=== PATIENT | male | born 1940 | race Caucasian/White ===

== ENCOUNTER 2016-05-07 14:08 | Inpatient (IN) | payer OTHER ==
[~2016-05-07] VITALS: Ht 170.2 cm; Wt 78.8 kg
[2016-05-07 14:15] VITALS: BP 135/63; PULSE 127; RESP 20; TEMP 97.5; O2SAT 98
--- NOTE | 2016-05-07 15:12 | PD ---
HPI Chief Complaint: Syncope/Near-Syncope Time Seen by Provider: 14:53 Travel History International Travel<30 days: No Contact w/Intl Traveler<30days: No Traveled to known affect area: No History of Present Illness HPI This patient was out in the yard and became dizzy and lightheaded. He felt like he is given a pass out. His neighbor helped him into a chair and reports that he did lose consciousness and slumped back in the chair. He woke spontaneously. He did not have any chest pain. 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 He denies any history of cardiac disease. He presents in A. fib with RVR with rate of 140 but variable. Symptoms are moderately severe. No alleviating factors. Duration 30 minutes PFSH Past Medical History High Cholesterol: Yes Past Surgical History Surgical History: No Previous Surgery Social History Alcohol Use: Yes (2-3 DRINKS DAILY) Tobacco Use: No Substance Use: No Allergies-Medications (Allergen,Severity, Reaction): Coded Allergies: No Known Allergies (Unverified , 05/07/16) Review of Systems General / Constitutional: No: Fever Eyes: No: Visual changes HENT: Positive: Lightheadedness, No: Headaches Cardiovascular: Positive: Irregular Rhythm, Tachycardia, Syncope, No: Chest Pain or Discomfort Respiratory: No: Shortness of Breath Gastrointestinal: No: Abdominal Pain Genitourinary: No: Dysuria Musculoskeletal: No: Pain Skin: No Rash Neurologic: Positive: Weakness, Dizziness, Syncope Psychiatric: No: Depression Endocrine: No: Polydipsia Hematologic/Lymphatic: No: Easy Bruising Physical Exam Narrative GENERAL: Well-nourished, well-developed patient in no apparent distress. SKIN: Warm and dry. HEAD: Atraumatic. Normocephalic. EYES: Pupils equal and round. No scleral icterus. No injection or drainage. ENT: No nasal bleeding or discharge. Mucous membranes pink and moist. NECK: Trachea midline. No JVD. CARDIOVASCULAR: Irregularly irregular rhythm. No murmur appreciated. Rate between 120 -140 RESPIRATORY: No accessory muscle use. Clear to auscultation. Breath sounds equal bilaterally. GASTROINTESTINAL: Abdomen soft, non-tender, nondistended. Hepatic and splenic margins not palpable. MUSCULOSKELETAL: No obvious deformities. No clubbing. No cyanosis. No edema. NEUROLOGICAL: Awake and alert. No obvious cranial nerve deficits. Motor grossly within normal limits. Normal speech. PSYCHIATRIC: Appropriate mood and affect; insight and judgment normal. Data Data Last Documented VS Vital Signs Date Time Temp Pulse Resp B/P Pulse Ox O2 Delivery O2 Flow Rate FiO2 05/07/16 14:18 127 18 98 Room Air 05/07/16 14:15 97.5 135/63 Orders Diltiazem Inj (Cardizem Inj) (05/07/16 15:15) Iv Access Insert/Monitor (05/07/16 15:01) Complete Blood Count With Diff (05/07/16 15:01) Basic Metabolic Panel (Bmp) (05/07/16 15:01) Admissions Director / Telemetry RINA.Q8H (05/07/16 15:01) Prothrombin Time / Inr (Pt) (05/07/16 15:01) Act Partial Throm Time (Ptt) (05/07/16 15:01) Troponin I (05/07/16 15:01) Ckmb (Isoenzyme) Profile (05/07/16 15:01) Admit Order (Ed Use Only) (05/07/16 16:42) Labs Laboratory Tests Test 05/07/16 15:10 White Blood Count 6.8 TH/MM3 Red Blood Count 4.56 MIL/MM3 Hemoglobin 14.7 GM/DL Hematocrit 42.0 % Mean Corpuscular Volume 92.2 FL Mean Corpuscular Hemoglobin 32.2 PG Mean Corpuscular Hemoglobin 34.9 % Concent Red Cell Distribution Width 13.2 % Platelet Count 179 TH/MM3 Mean Platelet Volume 9.5 FL Neutrophils (%) (Auto) 73.3 % Lymphocytes (%) (Auto) 16.8 % Monocytes (%) (Auto) 8.4 % Eosinophils (%) (Auto) 1.0 % Basophils (%) (Auto) 0.5 % Neutrophils # (Auto) 5.0 TH/MM3 Lymphocytes # (Auto) 1.1 TH/MM3 Monocytes # (Auto) 0.6 TH/MM3 Eosinophils # (Auto) 0.1 TH/MM3 Basophils # (Auto) 0.0 TH/MM3 CBC Comment DIFF FINAL Differential Comment Prothrombin Time 10.7 SEC Prothromb Time International 1.0 RATIO Ratio Activated Partial 19.8 SEC Thromboplast Time Sodium Level 140 MEQ/L Potassium Level 3.9 MEQ/L Chloride Level 105 MEQ/L Carbon Dioxide Level 25.9 MEQ/L Anion Gap 9 MEQ/L Blood Urea Nitrogen 14 MG/DL Creatinine 0.86 MG/DL Estimat Glomerular Filtration 86 ML/MIN Rate Random Glucose 107 MG/DL Calcium Level 8.7 MG/DL Total Creatine Kinase 70 U/L Troponin I LESS THAN 0.02 NG/ML MDM Medical Decision Making Medical Screen Exam Complete: Yes Emergency Medical Condition: Yes Medical Record Reviewed: Yes Differential Diagnosis A. fib with RVR, SVT, ventricular tachycardia Narrative Course I have reviewed the patient's electronic medical record. Patient is from [place]. He is never been to the ER before IV placed CBC is normal Metabolic profile is normal CK is negative Troponin is negative Coagulation studies are normal I reviewed his EKG which shows atrial fibrillation but no ST elevation Extended cardiac monitoring confirms A. fib with RVR I gave him 15 mg IV Cardizem to achieve rate control Patient achieved good rate control with this. He is still in A. fib in the 70s Given his new onset arrhythmia coupled with syncope and no medical follow-up, He will be admitted for further evaluation. Call placed to the medical residents to discuss Diagnosis Primary Impression: Atrial fibrillation with RVR Additional Impression: Syncope Qualified Code: R55 - Syncope, unspecified syncope type Jorge Hoyos MD May 07, 2016 15:12
[2016-05-07] MEDS ORDERED: DILTIAZEM HCL 25 MG/5 ML VIAL IV ONE (15:15)
[2016-05-07 16:03] LABS: BASOPHIL % 0.5 % (0.0-2.0); EOSINOPHIL # 0.1 TH/MM3 (0-0.4); HEMO FLAGS DIFF FINAL; LYMPH % 16.8 % (9.0-44.0); LYMPHOCYTE # 1.1 TH/MM3 (1.0-4.8); MEAN CELL VOLUME 92.2 FL (80.0-100.0); MEAN CORPUSCULAR HEMOGLOBIN 32.2 PG (27.0-34.0); MEAN CORPUSCULAR HGB CONC 34.9 % (32.0-36.0); MONO % 8.4 % (0.0-8.0); NEUT % 73.3 % (16.0-70.0); PLATELET COUNT 179 TH/MM3 (150-450); RED BLOOD COUNT 4.56 MIL/MM3 (4.50-5.90); RED CELL DISTRIBUTION WIDTH 13.2 % (11.6-17.2); WHITE BLOOD COUNT 6.8 TH/MM3 (4.0-11.0)
[2016-05-07 16:29] LABS: ANION GAP 9 MEQ/L (5-15); BICARBONATE 25.9 MEQ/L (21.0-32.0); BLOOD UREA NITROGEN 14 MG/DL (7-18); CHLORIDE 105 MEQ/L (98-107); GLOMERULAR FILTRATION RATE 86 ML/MIN (>89); POTASSIUM 3.9 MEQ/L (3.5-5.1); SODIUM (NA) 140 MEQ/L (136-145)
[2016-05-07 16:30] LABS: APTT (PATIENT) 19.8 SEC (24.3-30.1); CREATINE KINASE 70 U/L (39-308); PROTHROMBIN TIME - PATIENT 10.7 SEC (9.8-11.6)
--- NOTE | 2016-05-07 17:01 | HHI.HP ---
[facility] Service Family Medicine Primary Care Physician Non-Staff Admission Diagnosis new onset Afib with RVR, syncope Diagnoses: International Travel<30 Days: No Contact w/Intl Traveler<30days: No Known Affected Area: No History of Present Illness 76M with a history significant for hyperlipidemia who presented to the ED after syncopal episode. He was helping a neighbor with yardwork, but began to feel very hot and sat down prior to passing out. The neighbor states he was unconscious for 20 seconds without any seizure activity, tongue biting, loss of bowel or bladder function. The patient endorses lightheadedness and palpitations prior to episode but denies any weakness. No blackout sensation. [place] better after waking up, but EMS was called due to patient's syncope. This is the first time this has happened. No cardiac history, no history of stroke, no history of seizures.No chest pain or shortness of breath during or before the episode. Possibly dehydrated given no water consumed today. No fall, no head injury. [place] weak after the fall but was "back to normal" once he got to ED by [facility]. No recent illness or sick contacts. Does endorse daily use of alcohol. The patient is from [place] - plans to go back to [place] at the end of next week. Has been here four months. (Joan Mascorro MD R1) Review of Systems Constitutional: DENIES: Fever, Chills Eyes: DENIES: Blurred vision, Diplopia Ears, nose, mouth, throat: DENIES: Tinnitus, Hearing loss, Throat pain Respiratory: DENIES: Cough, Wheezing Cardiovascular: DENIES: Chest pain, Palpitations Gastrointestinal: DENIES: Abdominal pain, Bloody stools, Constipation, Diarrhea , Nausea, Vomiting, Difficulty Swallowing Genitourinary: DENIES: Urinary frequency, Urinary incontinence, Urgency, Dysuria Integumentary: DENIES: Rash Hematologic/lymphatic: DENIES: Bruising Neurologic: DENIES: Abnormal gait, Headache, Localized weakness, Seizures, Tremor (Joan Mascorro MD R1) Past Family Social History Past Medical History Hyperlipidemia Past Surgical History None Reported Medications Crestor 5mg daily (Joan Mascorro MD R1) Allergies: Coded Allergies: No Known Allergies (Unverified , 05/07/16) Family History Denies family history of cardiac disease, diabetes, cva, cancer Social History Cigarettes: former, 25 years ago Alcohol: 3-4 beers daily, last use last night Illicit: none From [place], lives in [place] Jan - May (Joan Mascorro MD R1) Physical Exam Vital Signs Vital Signs Date Time Temp Pulse Resp B/P Pulse Ox O2 Delivery O2 Flow Rate FiO2 05/07/16 14:18 127 18 98 Room Air 05/07/16 14:15 97.5 127 20 135/63 98 Physical Exam GENERAL: This is a well-nourished, well-developed male, in no apparent distress. SKIN: No rashes, ecchymoses or lesions. Cool and dry. HEAD: Atraumatic. Normocephalic. No temporal or scalp tenderness. EYES: Pupils equal round and reactive. Extraocular motions intact. No scleral icterus. No injection or drainage. ENT: Nose without bleeding, purulent drainage or septal hematoma. Throat without erythema, tonsillar hypertrophy or exudate. Uvula midline. Airway patent. NECK: Trachea midline. No JVD or lymphadenopathy. Supple, nontender, no meningeal signs. CARDIOVASCULAR: Irregularly irregular rhythm. Heart rate is approximately 75 on telemetry. Radial and DP pulses 2+ and symmetric bilaterally. Brisk capillary refill. RESPIRATORY: Clear to auscultation. Breath sounds equal bilaterally. No wheezes , rales, or rhonchi. GASTROINTESTINAL: Abdomen soft, non-tender, nondistended. No hepato-splenomegaly , or palpable masses. No guarding. MUSCULOSKELETAL: Extremities without clubbing, cyanosis, or edema. No joint tenderness, effusion, or edema noted. No calf tenderness. Negative Homans sign bilaterally. NEUROLOGICAL: Awake and alert. Cranial nerves grossly intact. Nonfocal exam.. Motor and sensory grossly within normal limits. Normal speech. Laboratory Laboratory Tests Test 05/07/16 15:10 White Blood Count 6.8 Red Blood Count 4.56 Hemoglobin 14.7 Hematocrit 42.0 Mean Corpuscular Volume 92.2 Mean Corpuscular Hemoglobin 32.2 Mean Corpuscular Hemoglobin 34.9 Concent Red Cell Distribution Width 13.2 Platelet Count 179 Mean Platelet Volume 9.5 Neutrophils (%) (Auto) 73.3 Lymphocytes (%) (Auto) 16.8 Monocytes (%) (Auto) 8.4 Eosinophils (%) (Auto) 1.0 Basophils (%) (Auto) 0.5 Neutrophils # (Auto) 5.0 Lymphocytes # (Auto) 1.1 Monocytes # (Auto) 0.6 Eosinophils # (Auto) 0.1 Basophils # (Auto) 0.0 CBC Comment DIFF FINAL Differential Comment Prothrombin Time 10.7 Prothromb Time International 1.0 Ratio Activated Partial 19.8 Thromboplast Time Sodium Level 140 Potassium Level 3.9 Chloride Level 105 Carbon Dioxide Level 25.9 Anion Gap 9 Blood Urea Nitrogen 14 Creatinine 0.86 Estimat Glomerular Filtration 86 Rate Random Glucose 107 Calcium Level 8.7 Total Creatine Kinase 70 Troponin I LESS THAN 0.02 (Joan Mascorro MD R1) Result Diagram: 05/07/16 1510 05/07/16 1510 Assessment and Plan Attending Attestation THIS CASE WAS DISCUSSED WITH THE RESIDENT PHYSICIANS. I HAVE REVIEWED THE RECORD AND AGREE WITH THE ABOVE NOTE AND PLAN OF CARE WAS DISCUSSED. I HAVE AUTHORIZED THE ORDER FOR ADMISSION TO AN IN-PATIENT STATUS. (Taj Phelps MD) Problem List: (1) Atrial fibrillation with RVR Status: Acute Plan: New-onset. Patient is currently symptomatic, however, he experienced syncopal episode this morning which may be related to structural cardiac abnormality. He denies history of CHF, hypertension, stroke. Major risk factors include age and alcohol use. EKG on admission showing atrial fibrillation with RVR, rate 133. He received one dose of IV Cardizem at 15 mg. Cardiology consult placed Chadsvasc2 score is 2, making him high thrombotic risk ASA 324mg chew given x 1 in ED Trend cardiac enzymes Metoprolol 25 mg by mouth initiated On exam, A. fib is rate controlled at approximately 75, and patient is asymptomatic. We'll continue to monitor on telemetry. Obtain echocardiogram (2) Syncope Status: Acute Plan: Syncopal episode likely related to atrial fibrillation and transiently reduced blood flow to periphery. Nonfocal exam. Will obtain echo as above. Workup cardiac causes of syncope is most likely etiology. Neuro checks every 4 hours (3) Alcohol abuse Status: Acute Plan: Drinks 4 beers nightly, last use 05/06. CIWA protocol. Rally pack (4) Fluids/Electrolytes/Nutrition/Prophylaxis Status: Acute Plan: Fluids: PO hydration Electrolytes: monitor and replete as needed Nutrition: heart-healthy diet DVT Prophylaxis:Lovenox 40mg subQ q24hr GI Prophylaxis: not indicated (Joan Mascorro MD R1) Problem Qualifiers (1) Syncope: Qualified Code: R55 - Syncope, unspecified syncope type Joan Mascorro MD R1 May 07, 2016 17:00 Taj Phelps MD May 08, 2016 11:51
[2016-05-07 17:28] VITALS: BP 151/74; PULSE 86; RESP 18; O2SAT 99
[2016-05-07 17:39] VITALS: O2SAT 98
[2016-05-07] MEDS ORDERED: ACETAMINOPHEN 325 MG TAB PO PRN (17:45)
[2016-05-07] MEDS ORDERED: ONDANSETRON HCL 4 MG/2 ML VIAL IVP PRN (17:45)
[2016-05-07] MEDS ORDERED: LORazepam 2 MG TAB PO PRN (17:45)
[2016-05-07] MEDS ORDERED: LORazepam 2 MG/ML VIAL IV PUSH PRN ×4 (17:45)
[2016-05-07] MEDS ORDERED: SODIUM CHLORIDE 0.9% FLUSH 10 ML FLUSH IV FLUSH PRN (17:45)
[2016-05-07] MEDS ORDERED: FLUMAZENIL 0.5 MG/5 ML VIAL IV PUSH PRN (17:45)
[2016-05-07] MEDS ORDERED: LORazepam 1 MG TAB PO PRN (17:45)
[2016-05-07] MEDS ORDERED: ASPIRIN 81 MG CHEW TAB CHEW ONE (18:00)
[2016-05-07] MEDS ORDERED: ENOXAPARIN SODIUM 40 MG/0.4 ML SYRINGE SQ SCH (18:00)
[2016-05-07] MEDS: THIAMINE INJ 100 MG in SODIUM CHLORIDE 0.9% INJ 100 ML IV SCH (19:01)
[2016-05-07 19:39] LABS: ALKALINE PHOSPHATASE 78 U/L (45-117); ALT (GPT) 59 U/L (12-78); AST (GOT) 51 U/L (15-37); INDIRECT BILIRUBIN 0.9 MG/DL (0.0-0.8); TOTAL BILIRUBIN ADULT 1.1 MG/DL (0.2-1.0)
[2016-05-07 20:00] VITALS: BP 139/99; PULSE 115; RESP 18; TEMP 97.6; O2SAT 98
[2016-05-07] MEDS: MULTIVITAMIN INJ 10 ML, FOLIC ACID INJ 1 MG in SODIUM CHLORID 0.9% 500 ML INJ 500 ML IV SCH (20:37)
[2016-05-07] MEDS: SODIUM CHLORIDE 0.9% FLUSH 10 ML FLUSH IV FLUSH SCH (21:00)
[2016-05-07] MEDS: METOPROLOL TARTRATE 25 MG TAB PO SCH (21:53)
[2016-05-07 22:26] LABS: CREATINE KINASE 56 U/L (39-308)
[2016-05-07 23:00] VITALS: PULSE 89
[2016-05-08] VITALS (8 sets, daily range): BP systolic 121–142; BP diastolic 63–84; PULSE 74–131; RESP 16–20; TEMP 97.1–98.1; O2SAT 95–98
[2016-05-08 03:19] LABS: AUTOMATED NEUTROPHIL # 4.2 TH/MM3 (1.8-7.7); BASOPHIL % 0.6 % (0.0-2.0); EOSINOPHIL # 0.1 TH/MM3 (0-0.4); HEMATOCRIT 38.9 % (39.0-51.0); HEMO FLAGS DIFF FINAL; LYMPH % 28.1 % (9.0-44.0); LYMPHOCYTE # 1.9 TH/MM3 (1.0-4.8); MEAN CELL VOLUME 91.4 FL (80.0-100.0); MEAN CORPUSCULAR HEMOGLOBIN 32.5 PG (27.0-34.0); MEAN CORPUSCULAR HGB CONC 35.6 % (32.0-36.0); MONO % 8.5 % (0.0-8.0); NEUT % 61.8 % (16.0-70.0); PLATELET COUNT 180 TH/MM3 (150-450); RED BLOOD COUNT 4.25 MIL/MM3 (4.50-5.90); RED CELL DISTRIBUTION WIDTH 13.2 % (11.6-17.2); WHITE BLOOD COUNT 6.8 TH/MM3 (4.0-11.0)
[2016-05-08 03:35] LABS: BICARBONATE 28.1 MEQ/L (21.0-32.0); POTASSIUM 3.7 MEQ/L (3.5-5.1)
[2016-05-08 03:49] LABS: CREATINE KINASE 55 U/L (39-308)
[2016-05-08] MEDS: SODIUM CHLORIDE 0.9% FLUSH 10 ML FLUSH IV FLUSH SCH ×2 (09:00→21:00)
[2016-05-08] MEDS: METOPROLOL TARTRATE 25 MG TAB PO SCH ×2 (09:15→21:00)
--- NOTE | 2016-05-08 09:40 | EKG ---
Date Performed: 05/07/2016 Time Performed: 22:48:18 PTAGE: 76 years EKG: ATRIAL FIBRILLATION MODERATE INTRAVENTRICULAR CONDUCTION DELAY NONSPECIFIC ST & T-WAVE ABNO RMALITY ABNORMAL RHYTHM ECG PREVIOUS TRACING : 05/07/2016 14.26 DOCTOR: Dar Franco Interpretating Date/Time 05/08/2016 09:40:07
[2016-05-08] MEDS ORDERED: XARE15TA PO (09:57)
--- NOTE | 2016-05-08 10:48 | MB ---
cc: GARCÍA RHODES DATE OF CONSULTATION: 05/08/2016 DATE OF : 1940 REASON FOR CONSULTATION Atrial fibrillation with RVR. HISTORY OF PRESENT ILLNESS 76-year-old male with past medical history significant for hyperlipidemia, that presents to the emergency department after syncopal episode. He reports he was working in yard work yesterday when he began feeling very hot, he sat down and then apparently he passed out for about 20 seconds. He reports before passing out he did have palpitations and lightheadedness, however denies chest pain, shortness of breath. EMS was called and he was brought into the emergency department. In the emergency department he was found to be in atrial fibrillation with RVR. The patient was admitted for further management and evaluation. The patient is from [place] and has been here in this state since January. He denies any fevers, chills, nausea, vomiting, diarrhea or recent travels. REVIEW OF SYSTEMS Negative except for what is mentioned in the HPI. PAST MEDICAL HISTORY Hyperlipidemia. PAST SURGICAL HISTORY None. MEDICATION Home medications: Crestor. ALLERGIES NO KNOWN DRUG ALLERGIES. FAMILY HISTORY Unremarkable. SOCIAL HISTORY He is a former smoker. He drinks alcohol socially, 3-4 beers daily. He denies illicit drug use. PHYSICAL EXAMINATION VITAL SIGNS: Temperature 97.2, respiratory rate 16, pulse 76, blood pressure 121 /63, O2 sat 95% on room air. Telemetry shows atrial fibrillation with ventricular response in about the high 90s, lower 100s at rest. GENERAL: He is awake, alert, oriented x3, in no acute distress. NECK: No JVD, no carotid bruits. HEART: Irregularly, irregular, no murmurs, rubs or gallops. LUNGS: Clear to auscultation bilaterally. ABDOMEN: Soft, nontender, nondistended. Positive bowel sounds. EXTREMITIES: No cyanosis or edema. DATA CBC hemoglobin 13, hematocrit 38, platelet count 180, INR 1. Chemistries sodium 141, potassium 3.7, BUN 13, creatinine 0.7, troponin less than 0.02 x2. EKG EKG on admission shows atrial fibrillation with RVR. ASSESSMENT/PLAN 76-year-old male who presented with syncope in the setting of atrial fibrillation with RVR versus dehydration. He currently remains afebrile and hemodynamically stable, rate has been controlled with IV medication. He has been now started on p.o. metoprolol. His CHADS vasc score is 2, making him high stroke risk. Thus, oral anticoagulation is highly recommended to be started. If his rate is controlled with medications, his echocardiogram is unremarkable and he is tolerating oral anticoagulation, I think he might be able to be discharged home with a 24-hour Holter monitor and scheduled to see me in the office. I understand that the patient is from [place] and he states that he would like to go to [place] as soon as possible. RECOMMENDATIONS 1. Continue rate control with metoprolol 25 mg p.o. b.i.d. and optimize as tolerated by blood pressure and heart rate 2. Start oral anticoagulation either with a new anticoagulants or Coumadin. 2. Get 2-D echocardiogram to assess LV systolic function or any valvulopathies. Thank you for the opportunity to take part in the care of this patient, further therapy to be determined. MD JEANA Gardiner/CINTHIA /10:02 AM /10:24 AM IGNACIA
--- NOTE | 2016-05-08 11:05 | EKG ---
Date Performed: 05/07/2016 Time Performed: 14:26:41 PTAGE: 76 years EKG: ATRIAL FIBRILLATION WITH RAPID VENTRICULAR RESPONSE MODERATE INTRAVENTRICULAR CONDUCTION DE LAY MINIMAL ST DEPRESSION ABNORMAL RHYTHM ECG INTERPRETATION BASED ON A DEFAULT AGE OF 38 YEARS NO PREVIOUS TRACING DOCTOR: Dar Franco Interpretating Date/Time 05/08/2016 11:04:45
--- NOTE | 2016-05-08 11:50 | HHI.FPPN ---
Subjective Remarks No acute events overnight and patient feels relatively well this morning. He has been out of bed to use the restroom and denies any significant shortness of breath or lightheadedness/dizziness. He continues to feel intermittent palpitations and review of his telemetry shows that he has continued in atrial fibrillation with occasional tachycardia. Her only his heart rate is in the 70s to 80s but continues to be irregular. At this time he denies chest pain, denies shortness of breath, denies nausea/vomiting, denies fevers or chills. In summary this is a 76-year-old male who was previously healthy with a past medical history significant only for hyperlipidemia who had a syncopal episode on the day of presentation. He was helping a neighbor do yard work when he felt himself becoming very hot/flushed associated with some palpitations. He was able to sit down prior to passing out, his syncopal episode apparently lasted approximately 20 seconds with no seizure type activity. He has never had a syncopal episode prior to this. Past Medical History Hyperlipidemia Past Surgical History None Reported Medications Crestor 5mg daily Family History Denies family history of cardiac disease, diabetes, cva, cancer Social History Cigarettes: former, 25 years ago Alcohol: 3-4 beers daily, last use last night Illicit: none From [place], lives in [place] Jan - May Objective Vitals Vital Signs Date Time Temp Pulse Resp B/P Pulse Ox O2 Delivery O2 Flow Rate FiO2 05/08/16 04:00 97.2 76 16 121/63 95 05/08/16 00:00 98.1 90 16 136/75 96 05/07/16 23:00 89 05/07/16 20:00 97.6 115 18 139/99 98 05/07/16 17:39 98 21 05/07/16 17:28 86 18 151/74 99 05/07/16 14:18 127 18 98 Room Air 05/07/16 14:15 97.5 127 20 135/63 98 I/O 05/07/16 05/07/16 05/07/16 05/08/16 05/08/16 05/08/16 07:00 15:00 23:00 07:00 15:00 23:00 Intake Total 840 ml 480 ml Balance 840 ml 480 ml Intake Oral 240 ml 480 ml IV Total 600 ml 0 ml Result Diagram: 05/08/1625605/08/16256 Objective Remarks GENERAL: This is a well-nourished, well-developed male, in no apparent distress. SKIN: No rashes, ecchymoses or lesions. Cool and dry. NECK: Trachea midline. No JVD or lymphadenopathy. Supple, nontender, no meningeal signs. CARDIOVASCULAR: Irregularly irregular rhythm. Radial and DP pulses 2+ and symmetric bilaterally. Brisk capillary refill. RESPIRATORY: Clear to auscultation. Breath sounds equal bilaterally. No wheezes , rales, or rhonchi. GASTROINTESTINAL: Abdomen soft, non-tender, nondistended. MUSCULOSKELETAL: Extremities without clubbing, cyanosis, or edema. NEUROLOGICAL: Awake and alert. Cranial nerves grossly intact. Nonfocal exam. Normal speech. A/P Assessment and Plan 76-year-old male presenting with syncopal episode and found to be in new onset atrial fibrillation with RVR Problem List: (1) Atrial fibrillation with RVR Status: Acute Plan: This appears to be new onset atrial fibrillation Cardiac troponin cycled 3 which are negative TSH within normal limits at 2.140 Rate control with metoprolol 25 mg by mouth twice a day - Titrate this up as needed for blood pressure control and heart rate CHADS-VASC2 score of 2 which puts him at high risk for thromboembolic event - Started on Xarelto 15 mg by mouth twice a day, will transition to 20 mg daily after 21 days Cardiology consulted and appreciate recommendations 2-D echocardiogram ordered and pending Of note patient is from [place] and would like to return to [place] for definitive treatment if possible (2) Syncope Status: Acute Plan: Secondary to atrial fibrillation with RVR - Treatment plan as above (3) Hyperlipidemia Status: Acute Plan: Continue home Crestor 5 mg daily (4) Alcohol abuse Status: Acute Plan: Drinks 4 beers nightly, last use 05/06. CIWA protocol. Rally pack (5) Fluids/Electrolytes/Nutrition/Prophylaxis Status: Acute Plan: Fluids: PO hydration Electrolytes: monitor and replete as needed Nutrition: heart-healthy diet DVT Prophylaxis: Anticoagulated with Xarelto GI Prophylaxis: not indicated Problem Qualifiers (1) Syncope: Qualified Code: R55 - Syncope, unspecified syncope type Taj Phelps MD May 08, 2016 11:50
[2016-05-08] MEDS: RIVAROXABAN 15 MG TAB PO SCH ×2 (12:21→21:00)
[2016-05-08] MEDS ORDERED: METO25TA3 PO (15:26)
[2016-05-08] MEDS: MULTIVITAMIN INJ 10 ML, FOLIC ACID INJ 1 MG in SODIUM CHLORID 0.9% 500 ML INJ 500 ML IV SCH (18:00)
[2016-05-08] MEDS: THIAMINE INJ 100 MG in SODIUM CHLORIDE 0.9% INJ 100 ML IV SCH (18:02)
[2016-05-08] MEDS: FOLIC ACID 1 MG TAB PO SCH (18:54)
[2016-05-08] MEDS: MULTIVITAMINS/MINERALS THERAPEUTIC TAB PO SCH (18:54)
--- NOTE | 2016-05-08 21:02 | EC ---
Study Study Date:05/08/2016 STUDY CONCLUSIONS SUMMARY - Left ventricle: The cavity size was normal. Wall thickness was normal. Systolic function was at the lower limits of normal. The estimated ejection fraction was 50%. Wall motion was normal; there were no regional wall motion abnormalities. - Tricuspid valve: Mild regurgitation. If LV function is below 40, please consider prescribing an ACEI or ARB or document rationale for non-use. PROCEDURE DATA STUDY STATUS: Elective. Procedure: Transthoracic echocardiography. Image quality was good. Scanning was performed from the parasternal, apical, and subcostal acoustic windows. Study completion: The patient tolerated the procedure well. Transthoracic echocardiography. M-mode, complete 2D, complete spectral Doppler, and color Doppler. Patient status: Inpatient. CARDIAC ANATOMY LEFT VENTRICLE: The cavity size was normal. Wall thickness was normal. Systolic function was at the lower limits of normal. The estimated ejection fraction was 50%. Wall motion was normal; there were no regional wall motion abnormalities. AORTIC VALVE: Trileaflet; normal thickness leaflets. Doppler: Transvalvular velocity was within the normal range. There was no stenosis. No regurgitation. AORTA: Aortic root: The aortic root was normal in size. MITRAL VALVE: Structurally normal valve. Doppler: Transvalvular velocity was within the normal range. There was no evidence for stenosis. No regurgitation. Peak gradient: 2mm Hg (D). LEFT ATRIUM: The atrium was normal in size. RIGHT VENTRICLE: The cavity size was normal. Wall thickness was normal. PULMONIC VALVE: Doppler: Transvalvular velocity was within the normal range. There was no evidence for stenosis. No regurgitation. TRICUSPID VALVE: Structurally normal valve. Doppler: Transvalvular velocity was within the normal range. Mild regurgitation. PULMONARY ARTERY: The main pulmonary artery was normal-sized. Systolic pressure was within the normal range. RIGHT ATRIUM: The atrium was normal in size. PERICARDIUM: There was no pericardial effusion. SYSTEMIC VEINS: Inferior vena cava: The vessel was normal in size. BASIC MEASUREMENTS ADULT Normal Left ventricle LV internal dimension, ED, chordal level, 49.5 mm 43-52 PLAX LV internal dimension, ES, chordal level, *40.6 mm 23-38 PLAX Fractional shortening, chordal level, PLAX *18 % >29 LV posterior wall thickness, ED 8.01 mm IVS/LVPW ratio, ED 1.2 <1.3 Ventricular septum Septal thickness, ED 9.61 mm Aortic valve Leaflet separation 17 mm 15-26 Left atrium Anterior-posterior dimension 33 mm Right ventricle RV internal dimension, ED, PLAX 22.6 mm 19-38 BASIC MEASUREMENTS ADULT Normal Aortic valve Leaflet separation 17 mm 15-26 Aorta Root diameter, ED 34 mm 20-37 DOPPLER MEASUREMENTS ADULT Normal Mitral valve Peak E-wave velocity 75 cm/s Peak A-wave velocity 46.9 cm/s Peak gradient, D 2 mm Hg Peak E/A ratio 1.6 Tricuspid valve Regurgitant peak velocity 199 cm/s Peak RV-RA gradient, S 16 mm Hg Maximal regurgitant velocity 199 cm/s LEGEND: Mean values are shown as u=mean value. Asterisk (*) cano values outside specified normal range. Prepared and signed by Cecy Chandler [id number]
--- NOTE | 2016-05-08 22:05 | HHI.FPPN ---
Addendum to progress note ADDENDUM Reason for addendum: Additonal documentation Additional information Around 9pm, I received a page from Mr. Chanel's nurse stating that he was refusing to take the second doses of Metoprol and Xarelto. Currently, his heart rate is in the 100's but is intermittently elevated to the 120's and 130s. I stopped by to talk with the patient and explained the risks of not taking these medications. He insisted that his morning nurse told him that the sugar reprocess operator head said he is only supposed to take the medications in the morning. He stated that he is waiting on the sugar reprocess operator head to see him in the morning and confirm how he should take the medications. Apparently, he was told by someone that his ECHO was normal and there was nothing wrong with his heart. According to him, he does not want to "kill himself" by taking extra doses of the medications. I informed him that I am one of the doctors on his team and that we all agreed that he should take Metoprolol and Xarelto twice daily. I also reminded him that Dr. Kaur, the sugar reprocess operator head, saw him this morning and mentioned Metoprolol BID in his note. Despite my attempts to convince him, Mr. Hatfield refused to budge. He knows to call his nurse if he develops any symptoms, who can reach the night team. Estella Howell MD R1 May 08, 2016 22:05
[2016-05-09] MEDS: RIVAROXABAN 15 MG TAB PO SCH (08:18)
[2016-05-09] MEDS: SODIUM CHLORIDE 0.9% FLUSH 10 ML FLUSH IV FLUSH SCH (08:19)
[2016-05-09] MEDS: METOPROLOL TARTRATE 25 MG TAB PO SCH ×2 (08:19→12:53)
[2016-05-09] MEDS: MULTIVITAMINS/MINERALS THERAPEUTIC TAB PO SCH (08:19)
[2016-05-09] MEDS: FOLIC ACID 1 MG TAB PO SCH (08:19)
[2016-05-09] MEDS ORDERED: THIAMINE HCL 100 MG TAB PO SCH (09:00)
--- NOTE | 2016-05-09 11:25 | HHI.DCPOC ---
Discharge Care Plan Diagnosis: (1) Atrial fibrillation with RVR (2) Syncope (3) Hyperlipidemia Goals to Promote Your Health * To prevent worsening of your condition and complications * To maintain your health at the optimal level Directions to Meet Your Goals Take your medications as prescribed Follow your dietary instruction Follow activity as directed Keep your appointments as scheduled Take your immunizations and boosters as scheduled If your symptoms worsen call your PCP, if no PCP go to Urgent Care Center or Emergency Room Smoking is Dangerous to Your Health. Avoid second hand smoke Call the 24-hour hour crisis hotline for domestic abuse at Jimi Walker MD R2 May 09, 2016 11:25
--- NOTE | 2016-05-09 11:55 | HHI.DS ---
Discharge Summary Admission Date May 07, 2016 at 16:44 Admitting Diagnosis new onset Afib with RVR, syncope (1) Atrial fibrillation with RVR Plan: This appears to be new onset atrial fibrillation Cardiac troponin cycled 3 which are negative TSH within normal limits at 2.140 Rec against EtOH use. Rate control with metoprolol 25 mg by mouth twice a day - Titrate this up as needed for blood pressure control and heart rate CHADS-VASC2 score of 2 which puts him at high risk for thromboembolic event - Started on Xarelto 15 mg by mouth twice a day, will transition to 20 mg daily after 21 days Cardiology consulted and appreciate recommendations 2-D echocardiogram ordered and pending Of note patient is from [place] and would like to return to [place] for definitive treatment if possible (2) Syncope Plan: Secondary to atrial fibrillation with RVR - Treatment plan as above (3) Hyperlipidemia Plan: Continue home Crestor 5 mg daily (4) Alcohol abuse Plan: Drinks 4 beers nightly, last use 05/06. CIWA protocol. Rally pack (5) Fluids/Electrolytes/Nutrition/Prophylaxis Plan: Fluids: PO hydration Electrolytes: monitor and replete as needed Nutrition: heart-healthy diet DVT Prophylaxis: Anticoagulated with Xarelto GI Prophylaxis: not indicated Brief History 76M with a history significant for hyperlipidemia who presented to the ED after syncopal episode. He was helping a neighbor with yardwork, but began to feel very hot and sat down prior to passing out. The neighbor states he was unconscious for 20 seconds without any seizure activity, tongue biting, loss of bowel or bladder function. The patient endorses lightheadedness and palpitations prior to episode but denies any weakness. No blackout sensation. [employer] better after waking up, but EMS was called due to patient's syncope. This is the first time this has happened. No cardiac history, no history of stroke, no history of seizures.No chest pain or shortness of breath during or before the episode. Possibly dehydrated given no water consumed today. No fall, no head injury. [employer] weak after the fall but was "back to normal" once he got to ED by [facility]. No recent illness or sick contacts. Does endorse daily use of alcohol. The patient is from [place] - plans to go back to [place] at the end of next week. Has been here four months. CBC/BMP: 05/08/16 0257 05/08/16 0257 Significant Findings Laboratory Tests Test 05/07/16 05/07/16 05/08/16 15:10 21:17 02:57 Neutrophils (%) (Auto) 73.3 % (16.0-70.0) Monocytes (%) (Auto) 8.4 % (0.0-8.0) 8.5 % (0.0-8.0) Activated Partial 19.8 SEC Thromboplast Time (24.3-30.1) Estimat Glomerular Filtration 86 ML/MIN (>89) Rate Random Glucose 107 MG/DL 111 MG/DL (74-106) (74-106) Total Bilirubin 1.1 MG/DL (0.2-1.0) Indirect Bilirubin 0.9 MG/DL (0.0-0.8) Aspartate Amino Transf 51 U/L (15-37) (AST/SGOT) Troponin I LESS THAN 0.02 LESS THAN 0.02 LESS THAN 0.02 NG/ML NG/ML NG/ML (0.02-0.05) (0.02-0.05) (0.02-0.05) Red Blood Count 4.25 MIL/MM3 (4.50-5.90) Hematocrit 38.9 % (39.0-51.0) Calcium Level 8.0 MG/DL (8.5-10.1) PE at Discharge GENERAL: This is a well-nourished, well-developed male, in no apparent distress. SKIN: No rashes, ecchymoses or lesions. Cool and dry. NECK: Trachea midline. No JVD or lymphadenopathy. Supple, nontender, no meningeal signs. CARDIOVASCULAR: Irregularly irregular rhythm. Radial and DP pulses 2+ and symmetric bilaterally. Brisk capillary refill. RESPIRATORY: Clear to auscultation. Breath sounds equal bilaterally. No wheezes , rales, or rhonchi. GASTROINTESTINAL: Abdomen soft, non-tender, nondistended. MUSCULOSKELETAL: Extremities without clubbing, cyanosis, or edema. NEUROLOGICAL: Awake and alert. Cranial nerves grossly intact. Nonfocal exam. Normal speech. Hospital Course Mr. Hatfield is a 76 y/o male who was admitted to [facility] after having a syncopal episode. He was found to be in active A fib on admission with HR > 130 bpm. His rate was controlled with 15 mg Cardizem IV bolus. A cardiac consult was placed and recommended Metoprolol 25 BID and Xarelto 15 mg bid for 3 weeks followed by 20 mg daily. His rate was controlled during his 2 days in the hospital, ECHO showed no clots and an EF of 50% with mild Tricuspid regurgitation. He was leaving for [place] in 5 days, and did not want to stay any longer. He was discharged in stable condition, on a rate control drug and anticoagulation. Pt Condition on Discharge: Fair Discharge Disposition: Discharge Home Discharge Instructions DIET: Follow Instructions for: Heart Healthy Diet Activities you can perform: Regular-No Restrictions Jimi Walker MD R2 May 09, 2016 11:55
--- NOTE | 2016-05-09 11:55 | HHI.FPPN ---
Subjective Remarks Refusing medications - HR 131 last night, evaluated by night team. He was uncertain about medication regimen and was afraid to take Metop BID. His HR was controlled today on exam. He wants to wait for cardiology to evaluate the pt prior to d/c. ECHO results were reviewed with the patients. I recommended against driving to [place] and getting a warehouse driver. CM will provide the family with coupons for Xarelto anticoagulation. (Jimi Walker MD R2) Objective Vitals Vital Signs Date Time Temp Pulse Resp B/P Pulse Ox O2 Delivery O2 Flow Rate FiO2 05/08/16 20:59 Room Air 05/08/16 20:30 97.6 131 16 133/79 97 05/08/16 17:49 127 05/08/16 16:00 97.1 86 20 124/81 97 05/08/16 12:00 97.2 91 20 131/84 96 I/O 05/08/16 05/08/16 05/08/16 05/09/16 05/09/16 05/09/16 07:00 15:00 23:00 07:00 15:00 23:00 Intake Total 480 ml 480 ml 240 ml 0 ml Balance 480 ml 480 ml 240 ml 0 ml Intake Oral 480 ml 480 ml 240 ml 0 ml IV Total 0 ml # Voids 2 2 2 # Bowel Movements 0 0 0 (Jimi Walker MD R2) Result Diagram: 05/08/16 0257 05/08/16 0257 Objective Remarks GENERAL: This is a well-nourished, well-developed male, in no apparent distress. SKIN: No rashes, ecchymoses or lesions. Cool and dry. NECK: Trachea midline. No JVD or lymphadenopathy. Supple, nontender, no meningeal signs. CARDIOVASCULAR: Irregularly irregular rhythm. Radial and DP pulses 2+ and symmetric bilaterally. Brisk capillary refill. RESPIRATORY: Clear to auscultation. Breath sounds equal bilaterally. No wheezes , rales, or rhonchi. GASTROINTESTINAL: Abdomen soft, non-tender, nondistended. MUSCULOSKELETAL: Extremities without clubbing, cyanosis, or edema. NEUROLOGICAL: Awake and alert. Cranial nerves grossly intact. Nonfocal exam. Normal speech. (Jimi Walker MD R2) A/P Assessment and Plan 76-year-old male presenting with syncopal episode and found to be in new onset atrial fibrillation with RVR Discharge Planning Today 05/09. (Jimi Walker MD R2) Attending Attestation Pt. examined and case discussed with resident physician I have read the above note and agree with the assessment/plan as discussed with me I was involved in all medical decision making for this patient Taj Phelps MD (Taj Phelps MD) Problem List: (1) Atrial fibrillation with RVR Status: Acute Plan: This appears to be new onset atrial fibrillation Cardiac troponin cycled 3 which are negative TSH within normal limits at 2.140 Rec against EtOH use. Rate control with metoprolol 25 mg by mouth twice a day - Titrate this up as needed for blood pressure control and heart rate CHADS-VASC2 score of 2 which puts him at high risk for thromboembolic event - Started on Xarelto 15 mg by mouth twice a day, will transition to 20 mg daily after 21 days Cardiology consulted and appreciate recommendations 2-D echocardiogram ordered and pending Of note patient is from [place] and would like to return to [place] for definitive treatment if possible (2) Syncope Status: Acute Plan: Secondary to atrial fibrillation with RVR - Treatment plan as above (3) Hyperlipidemia Status: Acute Plan: Continue home Crestor 5 mg daily (4) Alcohol abuse Status: Acute Plan: Drinks 4 beers nightly, last use 05/06. CIWA protocol. Rally pack (5) Fluids/Electrolytes/Nutrition/Prophylaxis Status: Acute Plan: Fluids: PO hydration Electrolytes: monitor and replete as needed Nutrition: heart-healthy diet DVT Prophylaxis: Anticoagulated with Xarelto GI Prophylaxis: not indicated (Jimi Walker MD R2) Problem Qualifiers (1) Syncope: Qualified Code: R55 - Syncope, unspecified syncope type Jimi Walker MD R2 May 09, 2016 11:55 Taj Phelps MD May 09, 2016 20:43
[2016-05-10] MEDS ORDERED: THIAMINE HCL 100 MG TAB PO SCH (09:00)
== END 2016-05-09 13:42 | disposition home or self-care (01) | DRG 310 ==
LOC: NEPC 14:08 → NEDA 16:44 → N04B 18:44
PROVIDERS: ADMIT Family Medicine; ATTEND Family Medicine
DX: I48.91 Unspecified atrial fibrillation (principal); E78.00 Pure hypercholesterolemia, unspecified; F10.10 Alcohol abuse, uncomplicated; Z87.891 Personal history of nicotine dependence
CPT/HCPCS: 80048; 80076; 82550; 84443; 84484; 85025; 85610; 85730; 93005; 93306; 96374; J3411; J7040